=== PATIENT | female | born 1990 | race Caucasian/White ===

== ENCOUNTER 2017-08-22 00:14 | Emergency (ER) | payer BC ==
[~2017-08-22] VITALS: Ht 167.6 cm; Wt 120.2 kg
[~2017-08-22 00:14] MED LIST: ENDOCET 5-3251 EACH PO; IBUPROFEN800 MG PO; ULTRAM50 MG PO; VIBRAMYCIN100 MG PO
[2017-08-22 00:16] VITALS: BP 139/88
[2017-08-22 01:33] LABS: ADD MIUA? YES; BILIRUBIN NEGATIVE; BLOOD NEGATIVE; COLOR YELLOW ((YELLOW)); GLUCOSE (STRIP) NEGATIVE; KETONES NEGATIVE; LEUKOCYTES LARGE; NITRITE POSITIVE; PROTEIN (STRIP) 100; UROBILINOGEN 0.2 MG/DL (0.2-1.0)
[2017-08-22 01:47] LABS: EPITHELIAL CELLS 2+ /HPF; RED BLOOD CELLS NONE SEEN /HPF (0-5); WHITE BLOOD CELLS 15-20 /HPF (0-5)
[2017-08-22 01:48] LABS: BACTERIA 3+ /HPF; CASTS NONE SEEN /LPF; CRYSTALS NONE SEEN; MUCUS NONE SEEN /LPF; UCUL ADDED? YES
[2017-08-22] MEDS ORDERED: PERCOCET 5/31 TABLET PO (01:51)
[2017-08-22] MEDS ORDERED: BACTRIM,SEPT1 TABLET PO (01:51)
== END 2017-08-22 02:07 | disposition home or self-care (01) ==
LOC: EXP 00:14 → EME 00:14 → EXP 02:07
DX: N39.0 Urinary tract infection, site not specified (principal); F17.200 Nicotine dependence, unspecified, uncomplicated; Z88.5 Allergy status to narcotic agent; Z88.6 Allergy status to analgesic agent
CPT/HCPCS: 81003; 87077; 87086; 87186; 99281; 99284

== ENCOUNTER 2018-01-22 22:42 | Emergency (ER) | payer OTHER ==
[~2018-01-22 22:42] MED LIST changes: +BACTRIM,SEPT1 TABLET PO; +PERCOCET 5/31 TABLET PO
[2018-01-22 22:59] LABS: BASOPHIL (%) 0.3 % (0-1); EOSINOPHIL (%) 4.3 % (0-5); EOSINOPHIL COUNT 0.3 K/uL (0-0.3); HEMATOCRIT 33.9 % (36.0-46.0); HEMOGLOBIN 10.5 G/DL (11.9-15.5); IMMATURE GRANULOCYTE (%) 0.3 % (0.0-0.7); LYMPHOCYTE (%) 30.2 % (15-42); LYMPHOCYTE COUNT 2.2 K/uL (1.0-2.8); MCV 77.4 FL (83-99); MONOCYTE (%) 6.2 % (3-12); MONOCYTE COUNT 0.5 K/uL (0-0.8); NEUTROPHIL (%) 58.7 % (45-76); NEUTROPHIL COUNT 4.3 K/uL (1.8-6.4); PLATELET COUNT 248 K/uL (156-360); RED BLOOD COUNT 4.38 M/uL (3.80-5.20); WHITE BLOOD COUNT 7.4 K/uL (4.1-10.2)
[2018-01-22 23:09] LABS: AMYLASE 37 IU/L (1-118); CHLORIDE 106 mEq/L (99-109); POTASSIUM 3.7 mEq/L (3.7-5.4); SODIUM 141 mEq/L (136-147)
[2018-01-22 23:10] LABS: GLUCOSE 97 mg/dL (70-99)
[2018-01-22 23:14] LABS: CREATININE 0.8 mg/dL (0.6-1.3); GFR ESTIMATE (CALCULATED) > 59 mL/min/; SERUM ETHYL ALCOHOL < 10 mg/dL
[2018-01-22 23:15] LABS: UREA NITROGEN (BUN) 13 mg/dL (9-23)
[2018-01-22 23:17] LABS: LIPASE 16 U/L (1.0-51.0)
[2018-01-22 23:23] LABS: QUANTITATIVE HCG < 4.0 MIU/ML
[2018-01-23] MEDS ORDERED: PERCOCET 5/31 TABLET PO (00:36)
[2018-01-23] MEDS ORDERED: CIPROFLOXACIN H10 ML RIGHT EYE (00:37)
== END 2018-01-23 01:12 | disposition home or self-care (01) ==
LOC: TRA 22:42
PROVIDERS: Emergency Medicine
DX: S80.02XA Contusion of left knee, initial encounter (principal); S80.01XA Contusion of right knee, initial encounter; S39.012A Strain of muscle, fascia and tendon of lower back, initial encounter; R51 Headache; R10.9 Unspecified abdominal pain; V47.6XXA Car passenger injured in collision with fixed or stationary object in traffic accident, initial encounter; Y92.410 Unspecified street and highway as the place of occurrence of the external cause; G89.29 Other chronic pain; M54.9 Dorsalgia, unspecified; Z88.6 Allergy status to analgesic agent; Z88.5 Allergy status to narcotic agent; F17.200 Nicotine dependence, unspecified, uncomplicated
CPT/HCPCS: 70450; 71045; 72125; 72132; 73560; 74177; 80048; 81003; 82150; 83690; 84702; 85025; 86850; 86900; 86901; 99281; 99285; G0480; J2405; J3010

== ENCOUNTER 2018-01-28 12:36 | Emergency (ER) | payer OTHER ==
[~2018-01-28] VITALS: Ht 167.6 cm; Wt 121.9 kg
[~2018-01-28 12:36] MED LIST changes: +CIPROFLOXACIN H10 ML RIGHT EYE
[2018-01-28] MEDS ORDERED: NAPROXEN500 MG PO (15:19)
[2018-01-28 15:32] VITALS: BP 112/84
== END 2018-01-28 15:35 | disposition home or self-care (01) ==
LOC: EME 12:36
DX: S80.12XD Contusion of left lower leg, subsequent encounter (principal); V47.6XXD Car passenger injured in collision with fixed or stationary object in traffic accident, subsequent encounter; F90.9 Attention-deficit hyperactivity disorder, unspecified type; F17.200 Nicotine dependence, unspecified, uncomplicated; Z88.6 Allergy status to analgesic agent; Z88.5 Allergy status to narcotic agent
CPT/HCPCS: 73564; 73590; 99281; 99283

== ENCOUNTER 2018-05-15 23:40 | Emergency (ER) | payer OTHER ==
[~2018-05-15] VITALS: Ht 165.1 cm; Wt 121.6 kg
[~2018-05-15 23:40] MED LIST changes: +NAPROXEN500 MG PO
[2018-05-16] MEDS ORDERED: MEDROL DOSEPAK4 MG PO (02:06)
[2018-05-16 02:56] VITALS: BP 136/91
== END 2018-05-16 02:57 | disposition home or self-care (01) ==
LOC: EME 23:40
DX: M54.5 Low back pain (principal); G89.29 Other chronic pain; F17.200 Nicotine dependence, unspecified, uncomplicated; Z88.5 Allergy status to narcotic agent; Z88.6 Allergy status to analgesic agent
CPT/HCPCS: 99281; 99284; J1885; J7512